=== PATIENT | female | born 1980 | race American Indian/Alaskan Native ===

== ENCOUNTER 2022-05-21 11:01 | Emergency (ER) | payer MEDICARE ==
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
--- NOTE | 2022-05-21 16:08 | XRay Report ---
Cervical spine 4 views INDICATION: Neck pain FINDINGS: Alignment appears normal. Mild endplate changes in the mid lower cervical spine. No prevert ebral soft tissue swelling. Odontoid appears normal. 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
[2022-05-21] MEDS ORDERED: IBUPROFEN 800 MG TAB PO ONE ×2 (16:19→18:00)
[2022-05-21] MEDS ORDERED: CYCLOBENZAPRINE 10 MG TAB PO ONE ×2 (16:19→18:00)
[2022-05-21 17:42] VITALS: BP 153/94
--- NOTE | 2022-05-24 18:03 | Electrocardiograph Report ---
[facility] Test Date: 2022-05-21 Test Time: 11:37:54 Pat Name: FERNIE CALLE Department: Room: Gender: F Life Skills Specialist: BRYON : 1980 Requested By: STEPHAN LEDESMA Order Number: [id number] Reading MD: Sumit Spears Measurements Intervals [place] Rate: 85 P: 71 VA: 134 QRS: 39 QRSD: 75 T: 66 QT: 385 QTc: 459 Interpretive Statements Sinus rhythm Probable left atrial enlargement No previous ECG available for comparison Electronically Signed On 05-24-2022 18:03:14 EDT by Sumit Spears
== END 2022-05-21 17:41 | disposition home or self-care (01) ==
LOC: ED 11:01
DX: M54.2 Cervicalgia (principal); J45.909 Unspecified asthma, uncomplicated; W19.XXXA Unspecified fall, initial encounter; Y93.89 Activity, other specified; Y92.89 Other specified places as the place of occurrence of the external cause; Y99.8 Other external cause status
CPT/HCPCS: 72040; 93005; 99283